=== PATIENT | female | born 1935 | race African-American/Black ===

== ENCOUNTER → 2018-04-13 | Emergency (ER) | payer OTHER ==
[~2018-04-13] VITALS: Ht 165.1 cm; Wt 86.2 kg
[~2018-04-13] MED LIST: ALAVERT10 MG; COZAAR100 MG PO; ECONAZOLE NITRA15 GM; HYDROCHLOROTHIA25 MG PO; LISINOPRIL-HCT1 EAC1; LOSARTAN-HCTZ1 EAC1; METFORMIN HCL750 MG; MILLIPRED DP5 M1 PO
== END | disposition home or self-care (01) ==
LOC: ER 02:04
DX: R60.0 Localized edema (principal); T46.4X5A Adverse effect of angiotensin-converting-enzyme inhibitors, initial encounter; Y92.89 Other specified places as the place of occurrence of the external cause